=== PATIENT | male | born 1960 | race Caucasian/White ===

== ENCOUNTER 2022-07-27 19:37 | Inpatient (IN) | payer MEDICAID, OTHER ==
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
[2022-07-27 20:19] LABS: BASOPHILS # (AUTO) 0.1 10^3/uL (0.0-0.1); BASOPHILS % (AUTO) 0.7 %; EOSINOPHILS # (AUTO) 0.1 10^3/uL (0.0-0.7); EOSINOPHILS % (AUTO) 0.6 %; HCT - HEMATOCRIT 45.9 % (42.0-52.0); HGB - HEMOGLOBIN 15.4 g/dL (14.0-18.0); LYMPHOCYTES # (AUTO) 0.9 10^3/uL (1.5-3.5); LYMPHOCYTES % (AUTO) 6.2 %; MEAN CORPUSCULAR HEMOGLOBIN 31.6 pg (27.0-31.0); MEAN CORPUSCULAR HGB CONC 33.6 g/dL (32.0-36.0); MEAN CORPUSCULAR VOLUME 94.1 fL (80.0-94.0); MEAN PLATELET VOLUME 9.7 fL (7.4-11.4); MONOCYTES # (AUTO) 0.8 10^3/uL (0.0-1.0); MONOCYTES % (AUTO) 5.9 %; NEUTROPHILS # (AUTO) 11.8 10^3/uL (1.5-6.6); NEUTROPHILS % (AUTO) 85.7 %; PLT - PLATELET COUNT 330 10^3/uL (130-450); RED BLOOD COUNT 4.88 10^6/uL (4.70-6.10); RED CELL DISTRIBUTION WIDTH 13.9 % (12.0-15.0); WHITE BLOOD COUNT 13.8 x10^3/uL (4.8-10.8)
[2022-07-27 20:32] LABS: ALBUMIN 3.9 g/dL (3.2-5.5); BILIRUBIN,TOTAL 0.5 mg/dL (0.2-1.0); CALCIUM 9.4 mg/dL (8.5-10.3); CREATININE 0.7 mg/dL (0.6-1.2); ETOH - ETHANOL 29.3 mg/dL; POTASSIUM 3.9 mmol/L (3.5-5.0)
[2022-07-27] MEDS ORDERED: iohexoL-300 100 ML VIAL ONE (20:37)
[2022-07-27 21:05] LABS: MUDS CUTOFF CONCENTRATIONS CUTOFF CONC BELOW:
[2022-07-27 21:10] LABS: BILIRUBIN,URINE NEGATIVE (NEGATIVE); GLUCOSE, URINE (UA) NEGATIVE (NEGATIVE); KETONES,URINE (UA) NEGATIVE (NEGATIVE); LEUKOCYTE ESTERASE, URINE NEGATIVE (NEGATIVE); NITRITE,URINE NEGATIVE (NEGATIVE); OCCULT BLOOD,URINE MODERATE (NEGATIVE); PH,URINE 5.5 PH (5.0-7.5); PROTEIN,URINE 30 mg/dL (NEGATIVE); UROBILINOGEN,URINE 0.2 (NORMAL) E.U./dL (NORMAL)
[2022-07-27 21:12] LABS: CLARITY,URINE HAZY (CLEAR)
[2022-07-27 21:22] LABS: BACTERIA,URINE Rare /HPF (None Seen); CASTS, URINE 0-2 Granular Casts /LPF; MUCUS,URINE Few Strands; SQUAMOUS EPITHELIAL CELL,UR NONE SEEN (<= Few); WBC,URINE 0-3 /HPF (0-3)
[2022-07-27 21:23] LABS: AMPHETAMINE SCREEN,URINE POSITIVE (NEGATIVE); BARBITURATE SCREEN,UR NEGATIVE (NEGATIVE); BENZODIAZEPINES SCREEN, URINE NEGATIVE (NEGATIVE); COCAINE SCREEN URINE NEGATIVE (NEGATIVE); METHADONE SCREEN, URINE NEGATIVE (NEGATIVE); METHAMPHETAMINES SCREEN, URINE POSITIVE (NEGATIVE); OPIATE SCREEN, URINE NEGATIVE (NEGATIVE); OXYCODONE SCREEN, URINE NEGATIVE (NEGATIVE); PROPOXYPHENE SCREEN, URINE NEGATIVE (NEGATIVE); THC CANNABINOID SCREEN, URINE NEGATIVE (NEGATIVE); TRICYCLIC ANTIDEPRESSANT,URINE NEGATIVE (NEGATIVE)
[2022-07-27] MEDS ORDERED: ZOLPIDEM 5 MG TABLET PO PRN (21:52)
[2022-07-27] MEDS ORDERED: ONDANSETRON 4 MG/2 ML VIAL IVP PRN (21:52)
[2022-07-27] MEDS ORDERED: ONDANSETRON ODT 4 MG TABLET TL PRN (21:52)
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
[2022-07-27] MEDS ORDERED: iohexoL-300 100 ML VIAL IVP ONE (22:10)
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
[2022-07-27] MEDS: LACTATED RINGERS 1,000 ML IV SCH (22:40)
[2022-07-27] MEDS: HYDROmorphone 0.5 MG/0.5 ML SYRINGE IVP PRN (22:41)
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
--- NOTE | 2022-07-27 23:07 | XRAY Report ---
PROCEDURE: Chest 1 View X-Ray INDICATIONS: chest pain TECHNIQUE: One view of the chest was acquired. COMPARISON: None. FINDINGS: Surgical changes and devices: None. Lungs and pleura: There are low lung volumes. Bibasilar opacities within the lung bases likely repre sent atelectasis. There is a possible small left pleural effusion. Right costophrenic angle is incomp letely included on the current study. No definite pneumothorax. Mediastinum: Mediastinal contours appear within normal limits given technique and low lung volumes. Heart size is normal. Bones and chest wall: No displaced fractures on the current study. Overlying soft tissues appear unr emarkable. IMPRESSION: 1. Low lung volumes with bibasilar opacities likely represent atelectasis. 2. Possible small left pleural effusion. Recommend correlation with subsequent CT. Reviewed by: Nicolas Hernandez MD on 07/27/2022 11:06 PM [facility] Approved by: Nicolas Hernandez MD on 07/27/2022 11:06 PM [facility] Station ID: [id number]
[2022-07-28] MEDS: SODIUM CHLORIDE FLUSH 0.9% 10 ML SYRINGE IVP SCH ×3 (00:02→17:12)
[2022-07-28] MEDS: HYDROmorphone 0.5 MG/0.5 ML SYRINGE IVP PRN ×7 (00:42→21:34)
[2022-07-28] MEDS: ACETAMINOPHEN 325 MG TABLET PO PRN (00:42)
[2022-07-28 08:08] LABS: HCT - HEMATOCRIT 43.4 % (42.0-52.0); HGB - HEMOGLOBIN 14.5 g/dL (14.0-18.0); MEAN CORPUSCULAR HEMOGLOBIN 31.9 pg (27.0-31.0); MEAN CORPUSCULAR HGB CONC 33.4 g/dL (32.0-36.0); MEAN CORPUSCULAR VOLUME 95.4 fL (80.0-94.0); MEAN PLATELET VOLUME 9.8 fL (7.4-11.4); RED BLOOD COUNT 4.55 10^6/uL (4.70-6.10); WHITE BLOOD COUNT 11.2 x10^3/uL (4.8-10.8)
[2022-07-28] MEDS: LACTATED RINGERS 1,000 ML IV SCH ×2 (08:26→17:12)
[2022-07-28] MEDS: FAMOTIDINE 20 MG TABLET PO SCH ×2 (10:23→19:47)
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
[2022-07-28] MEDS: oxyCODONE 5 MG TABLET PO PRN ×2 (14:40→19:47)
[2022-07-28] MEDS: IBUPROFEN 600 MG TABLET PO SCH ×2 (14:41→21:29)
[2022-07-28] MEDS: GABAPENTIN 300 MG CAPSULE PO PRN (17:11)
[2022-07-29] MEDS: oxyCODONE 5 MG TABLET PO PRN ×5 (00:07→23:51)
[2022-07-29] MEDS: ACETAMINOPHEN 325 MG TABLET PO PRN ×2 (00:07→06:53)
[2022-07-29] MEDS: SODIUM CHLORIDE FLUSH 0.9% 10 ML SYRINGE IVP SCH ×3 (00:08→17:47)
[2022-07-29] MEDS: HYDROmorphone 0.5 MG/0.5 ML SYRINGE IVP PRN ×3 (01:25→08:36)
[2022-07-29] MEDS: LACTATED RINGERS 1,000 ML IV SCH ×2 (04:16→15:45)
[2022-07-29] MEDS: IBUPROFEN 600 MG TABLET PO SCH ×3 (05:07→21:27)
[2022-07-29] MEDS: SODIUM CHLORIDE FLUSH 0.9% 10 ML SYRINGE IVP PRN ×2 (08:36→12:47)
[2022-07-29] MEDS: FAMOTIDINE 20 MG TABLET PO SCH ×2 (08:36→21:25)
[2022-07-29] MEDS: GABAPENTIN 300 MG CAPSULE PO PRN ×2 (09:55→17:11)
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
--- NOTE | 2022-07-29 10:22 | PHARMACY PROGRESS NOTE ---
- Best Possible Medication History Admit Date and Time: 07/28/22 1336 Processed by: Pharmacy Medication History completed: Yes Patient Interview: Pt unable to participate Secondary Source(s): Pharmacy records, Insurance records As the person ultimately responsible for medication therapy, providers are able to order a medication from an existing home medication list in [facility] via the "Reconcile Routine" prior to Confirmation of that medication by print support specialist. Such practice is discouraged except when the physician, in their clinical judgment, deems that a medical need exists for a medication without regard to previous use.
[2022-07-29] MEDS ORDERED: polyethylene glycoL 3350 17 GM PACKET PO SCH (11:00)
[2022-07-29] MEDS: DOCUSATE SODIUM 100 MG CAPSULE PO SCH ×2 (12:35→21:25)
[2022-07-29] MEDS: ACETAMINOPHEN 325 MG TABLET PO SCH ×4 (12:35→21:24)
[2022-07-29] MEDS: LIDOCAINE PATCH 5% TOP SCH (13:31)
[2022-07-30] MEDS: SODIUM CHLORIDE FLUSH 0.9% 10 ML SYRINGE IVP SCH ×3 (00:03→21:05)
[2022-07-30] MEDS: ACETAMINOPHEN 325 MG TABLET PO SCH ×6 (00:42→21:05)
[2022-07-30] MEDS: LACTATED RINGERS 1,000 ML IV SCH (00:43)
[2022-07-30] MEDS: HYDROmorphone 0.5 MG/0.5 ML SYRINGE IVP PRN (03:16)
[2022-07-30] MEDS: oxyCODONE 5 MG TABLET PO PRN ×6 (05:08→22:24)
[2022-07-30] MEDS: IBUPROFEN 600 MG TABLET PO SCH ×3 (05:16→22:22)
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
[2022-07-30] MEDS: LIDOCAINE PATCH 5% TOP SCH (08:00)
[2022-07-30] MEDS: FAMOTIDINE 20 MG TABLET PO SCH ×2 (08:00→21:06)
[2022-07-30] MEDS: polyethylene glycoL 3350 17 GM PACKET PO SCH ×2 (08:01→21:03)
[2022-07-30] MEDS: DOCUSATE SODIUM 100 MG CAPSULE PO SCH ×2 (08:01→21:06)
[2022-07-30] MEDS: GABAPENTIN 300 MG CAPSULE PO PRN (08:02)
[2022-07-30] MEDS ORDERED: GABAPENTIN 300 MG CAPSULE ONE (17:52)
[2022-07-30] MEDS: GABAPENTIN 300 MG CAPSULE PO SCH ×2 (17:55→22:21)
[2022-07-31] MEDS: ACETAMINOPHEN 325 MG TABLET PO SCH ×3 (01:18→09:01)
[2022-07-31] MEDS: SODIUM CHLORIDE FLUSH 0.9% 10 ML SYRINGE IVP SCH (01:19)
[2022-07-31] MEDS: oxyCODONE 5 MG TABLET PO PRN ×3 (01:19→09:01)
[2022-07-31] MEDS: GABAPENTIN 300 MG CAPSULE PO SCH (06:45)
[2022-07-31] MEDS: IBUPROFEN 600 MG TABLET PO SCH (06:46)
[2022-07-31 08:15] VITALS: BP 142/82
[2022-07-31] MEDS: DOCUSATE SODIUM 100 MG CAPSULE PO SCH (09:00)
[2022-07-31] MEDS: FAMOTIDINE 20 MG TABLET PO SCH (09:00)
[2022-07-31] MEDS ORDERED: amLODIPine 5 MG TABLET PO SCH (09:00)
[2022-07-31] MEDS ORDERED: DULoxetine 30 MG CAPSULE PO SCH (09:00)
[2022-07-31] MEDS: polyethylene glycoL 3350 17 GM PACKET PO SCH (09:03)
[2022-07-31] MEDS: LIDOCAINE PATCH 5% TOP SCH (09:05)
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
== END 2022-07-31 11:20 | disposition home or self-care (01) | DRG 948 ==
LOC: EDUNIT# → ED 19:37 → MS2 07-28 13:36 → OBSVTOIN 07-29 11:41
PROVIDERS: ADMIT Surgery; ATTEND Surgery
DX: G89.11 Acute pain due to trauma (principal); S22.41XA Multiple fractures of ribs, right side, initial encounter for closed fracture; V49.88XA Car occupant (driver) (passenger) injured in other specified transport accidents, initial encounter; Z85.038 Personal history of other malignant neoplasm of large intestine; F15.10 Other stimulant abuse, uncomplicated; K59.03 Drug induced constipation; T40.2X5A Adverse effect of other opioids, initial encounter; Y92.239 Unspecified place in hospital as the place of occurrence of the external cause; Z20.822 Contact with and (suspected) exposure to COVID-19
CPT/HCPCS: 36415; 70450; 71045; 71260; 72125; 74177; 80053; 80306; 80320; 81001; 83690; 84484; 85025; 85027; 87635; 93005; 96374; 96375; 96376; 99284; 99285; A9270; J1170; J7120; Q9967; 81003; 87086

== ENCOUNTER → 2022-07-27 | Outpatient (CLI) | payer MEDICAID | END | disposition critical access hospital (66) | LOC: EMS 19:13 | DX: R07.81 Pleurodynia (principal) | CPT/HCPCS: A0425; A0429; A0999 ==

== ENCOUNTER → 2022-07-27 | Outpatient (CLI) | payer MEDICAID | END | disposition EMS.NT | LOC: EMS 17:15 | DX: M54.2 Cervicalgia (principal) ==

== ENCOUNTER 2022-11-08 11:31 | Outpatient (CLI) | payer OTHER ==
[2022-11-08 11:46] LABS: BASOPHILS # (AUTO) 0.1 10^3/uL (0.0-0.1); BASOPHILS % (AUTO) 1.5 %; EOSINOPHILS # (AUTO) 0.3 10^3/uL (0.0-0.7); EOSINOPHILS % (AUTO) 4.7 %; HGB - HEMOGLOBIN 17.3 g/dL (14.0-18.0); LYMPHOCYTES # (AUTO) 1.2 10^3/uL (1.5-3.5); LYMPHOCYTES % (AUTO) 16.6 %; MEAN CORPUSCULAR HEMOGLOBIN 31.1 pg (27.0-31.0); MEAN CORPUSCULAR HGB CONC 33.3 g/dL (32.0-36.0); MEAN CORPUSCULAR VOLUME 93.5 fL (80.0-94.0); MEAN PLATELET VOLUME 10.2 fL (7.4-11.4); MONOCYTES # (AUTO) 0.5 10^3/uL (0.0-1.0); MONOCYTES % (AUTO) 7.3 %; NEUTROPHILS # (AUTO) 5.1 10^3/uL (1.5-6.6); NEUTROPHILS % (AUTO) 69.6 %; PLT - PLATELET COUNT 204 10^3/uL (130-450); RED BLOOD COUNT 5.56 10^6/uL (4.70-6.10); RED CELL DISTRIBUTION WIDTH 13.9 % (12.0-15.0); WHITE BLOOD COUNT 7.3 x10^3/uL (4.8-10.8)
[2022-11-08 12:07] LABS: ALBUMIN 4.2 g/dL (3.2-5.5); ALBUMIN/GLOBULIN RATIO 1.3 (1.0-2.2); ALKALINE PHOSPHATASE 105 IU/L (42-121); ALT ALANINE AMINOTRANSFERASE 51 IU/L (10-60); AST ASPARTATE AMINOTRANSFERASE 42 IU/L (10-42); BILIRUBIN,TOTAL 1.1 mg/dL (0.2-1.0); BUN - BLOOD UREA NITROGEN 11 mg/dL (6-20); CALCIUM 9.2 mg/dL (8.5-10.3); CARBON DIOXIDE - CO2 28 mmol/L (21-32); CHLORIDE 101 mmol/L (101-111); CHOL/HDL RATIO 2.7 (<5.0); CHOLESTEROL 189 mg/dL; CREATININE 0.8 mg/dL (0.6-1.2); GFR - MDRD 97 (>89); GLUCOSE 102 mg/dL (70-100); HDL CHOLESTEROL 70 mg/dL; LDL CHOLESTEROL,CALCULATED 90 mg/dL; LDL/HDL RATIO 1.3 (<3.6); POTASSIUM 4.2 mmol/L (3.5-5.0); SODIUM 138 mmol/L (135-145); TOTAL PROTEIN 7.4 g/dL (6.7-8.2); TRIGLYCERIDES 147 mg/dL; VLDL CHOLESTEROL 29 mg/dL
[2022-11-08 12:24] LABS: ESTIMATED AVERAGE GLUCOSE 117 mg/dL (70-100); HEMOGLOBIN A1c% 5.7 % (4.27-6.07)
[2022-11-08 15:48] LABS: THYROID STIMULATING HORMONE 1.88 uIU/mL (0.34-5.60)
== END 2022-11-08 11:32 | disposition home or self-care (01) ==
LOC: LAB 11:31
PROVIDERS: ATTEND Internal Medicine
DX: C18.9 Malignant neoplasm of colon, unspecified (principal); M72.0 Palmar fascial fibromatosis [Dupuytren]; G62.9 Polyneuropathy, unspecified; R21 Rash and other nonspecific skin eruption; Z79.899 Other long term (current) drug therapy
CPT/HCPCS: 36415; 80053; 80061; 82378; 82607; 83036; 83721; 84443; 85025